=== PATIENT | male | born 1970 | race Caucasian/White ===

== ENCOUNTER → 2016-11-05 | Outpatient (CLI) | payer OTHER ==
--- NOTE | 2016-11-07 19:15 | MR ---
EXAMINATION TYPE: MR shoulder RT wo con DATE OF EXAM: 11/05/2016 3:24 PM COMPARISON: Outside radiographs 10/22/2016 HISTORY: 46-year-old male with right shoulder pain x 1 year, no trauma TECHNIQUE: Multiplanar, multisequence imaging of the right shoulder is performed without contrast. FINDINGS: The long head biceps tendon appears intact and appropriately situated along the bicipital groove. There is some heterogeneous signal within the subscapularis tendon which remains intact. Moderate degenerative joint space narrowing with marginal spurring and some degenerative subchondral signal changes at the acromial clavicular joint. There may be minimal contact with the underlying ruiz tendinous junction of the supraspinatus. There is heterogeneity of both the supraspinatus and infraspinatus tendons. There is a deep bursal sided tear of the anterior to mid supraspinatus tendon measuring 1.2 cm AP and 1.1 cm long. Only a few intact fibers appear to prevent articular sided communication. There is casey tional bursal sided fraying of the mid to posterior supraspinatus tendon. Infraspinatus tendon is intact. Trace effusion within the subacromial/subdeltoid bursa, slightly greater anteriorly overlying the rot ator cuff interval. No atrophy of the rotator cuff musculature. There is irregular signal which extends into the superior labrum, for example, coronal PD image 12. N o paralabral cyst. The glenohumeral joint is intact without significant joint effusion. No Hill-Sachs deformity or os acromiale. However, there is a 1.7 x 1.6 cm sliver of bone in the anter ior shoulder which appears to be contiguous with the myotendinous junction of the coracobrachialis an d corresponds to the density seen on radiographs. No abnormal edema here compatible with a remote chr onic injury. In addition, there is a partially visualized elongated intramedullary lesion that is T2 hyperintense measuring 1.3 cm wide and extending down beyond the [id number]. This corresponds to a multilocular appearing lucent lesion on outside radiographs. No suspicious bone marrow replacement. IMPRESSION: 1. Mild diffuse rotator cuff tendinosis with a high-grade bursal sided tear of the anterior to mid antonio praspinatus tendon (1.2 x 1.1 cm). Only a few intact articular sided fibers prevent full-thickness co mmunication. 2. Additional bursal sided fraying of the mid to posterior supraspinatus tendon. Mild overlying subac romial/subdeltoid bursitis. 3. Possible small SLAP tear. Correlate with patient's symptoms. 4. 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 5. Partially visualized lesion within the humeral shaft. The portion visualized has a cystic appearan ce and when correlating with the outside radiographs, aneurysmal bone cyst versus osseous distortion from a remote healed fracture deformity are the favored considerations. Correlate as to any potential risk for pathologic fracture.
== END | disposition home or self-care (01) ==
LOC: RADMRIMAIN 14:26
PROVIDERS: ATTEND Orthopaedic Surgery
DX: S46.011A Strain of muscle(s) and tendon(s) of the rotator cuff of right shoulder, initial encounter (principal); M75.51 Bursitis of right shoulder; M89.9 Disorder of bone, unspecified; X58.XXXA Exposure to other specified factors, initial encounter